=== PATIENT | female | born 2005 | race Caucasian/White ===

== ENCOUNTER 2025-01-07 12:33 | Outpatient (CLI) | payer OTHER, SELFPAY ==
--- OUTSIDE RECORDS SUMMARY | 2025-01-07 12:39 | XMS_ITS | Clinical Summary ---
Author Organization [facility] Address [address] [place] [address] Care Team Providers Care Vocational Rehabilitation Teacher Name Role Phone Meghan Way MD Primary Care Provider Allergies Active Allergy Reactions Criticality Noted Date Comments Red Dye Stomach upset Low Medications Xulane 150-35 mcg/24 hrIndications:Enco unter for surveillance of transdermal patch hormonal contraceptive device APPLY 1 PATCH TOPICALLY ONCE A WEEK FOR 12 WEEKS, THEN REMOVE FOR 1 WEEK. 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 She has terrific alignment with her contact lenses in place. I am removing the bifocals and hope she remains asymptomatic. 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 07/10/2010 Encounters Date Type Department Care Team Description 01/05/2025 4:00 PM CDT Office Visit [facility] Pediatric Gastroenterology [address] [facility] [address] [facility] [address] Yajaira Peng MD Abdominal pain, generalized (Primary Dx); Constipation, unspecified constipation type; Nausea 12/25/2024 10:00 AM CDT Therapy [facility] Occupational Therapy [address] [facility] [address] [facility] [address] [facility] [place] [address] Nelly Mccord OT Periventricular leukomalacia (HCC) (Primary Dx); Spastic diplegia (HCC); Generalized anxiety disorder; Agenesis of corpus callosum (HCC) 12/25/2024 9:00 AM CDT Therapy [facility] Physical Therapy [id number] [place] [address] Therapy [address] [place] [address] Kendy Quesada, DPT Spastic diplegia (HCC) (Primary Dx) 12/03/2024 11:00 AM CDT Therapy [facility] Physical Therapy [address] [place] [address] Therapy [address] [facility] [place] [address] Kendy Quesada, DPT Spastic diplegia (HCC) (Primary Dx); Agenesis of corpus callosum (HCC) 11/19/2024 3:00 PM CDT Therapy [facility] Physical Therapy [address] [place] [address] Therapy Services [address] [facility] [place] [address] Kendy Quesada, DPT Spastic diplegia (HCC) (Primary Dx) 11/05/2024 9:00 AM CDT Therapy [facility] Physical Therapy [address] [facility] [address] Therapy [address] [place] [phone] Kendy Quesada DPT Spastic diplegia (HCC) (Primary Dx); Agenesis of corpus callosum (HCC) 11/05/2024 Plan of Care Documentation [facility] Physical Therapy [address] [facility] [address] [facility] [address] [place] [address] 10/09/2024 Telephone [facility] Pediatric Neurology [facility] [address] [place] [phone] Michaelle Angeles NP 10/08/2024 Telephone [facility] Pediatric Neurology [facility] [address] [place] [phone] Malina Bennett MD PhD from Last 3 Months Medical History Medical History Date Comments Intermittent alternating esotropia Esotropia, intermittent, alternating - (Added by TW Conv) Personal history of other di seases of urinary system History of pyelonephritis - (Added by TW Conv) Personal history of urinary infection History of urinary tract infection - (Added by TW Conv) Personal history of other di seases of the nervous system and sense organs History of hydroce phalus - (Added by TW Conv) Dysgenesis of corpus callosum (HCC) Per Mom Spastic diplegia (HCC) Per Mom Polymorphic light eruption Family History Medical History Relation Name Comments No Known Psychiatric History Brother No Known Psychiatric History Father Depression Maternal Grandmother Monserrat Arizmendi Diabetes Maternal Grandmother Monserrat Arizmendi Hypertension Maternal Grandmother Monserrat Arizmendi Diabetes Mother Shelby Sanchez Hypertension Mother Shelby Sanchez No Known Psychiatric History Mother Shelby Sanchez Diabetes Mother's Brother Jose Armando Arizmendi Hypertension Mother's Brother Jose Armando Arizmendi Depression Other Heart disease Paternal Grandfather Thom Sanchez Relation Name Status Comments Brother Father Alive Maternal Grandmother Monserrat Arizmendi Mother Shelby Sanchez Alive Mother's Brother Jose Armando Ugo Mother's Sister Other Paternal Grandfather Thom Sanchez Social History Tobacco Use Types Packs/Day Years Used Date Smoking Tobacco: Never Smokeless Tobacco: Never Tobacco Cessation:Counseling Given: Not Answered Alcohol Use Standard Drinks/Week Comments Defer 0 (1 standard drink = 0.6 oz pur e alcohol) [facility] Utilities Answer Date Recorded In the past 12 months has th e electric, gas, oil, or water company threatened to shut off services in your home? No 10/07/2024 Overall Financial Resource Strain (CARDIA) Answe r Date Recorded How hard is it for you to pa y for the very basics like food, housing, medical care, and heating? Not hard at all 10/07/2024 Hunger Vital Sign Answer Date Recorded Within the past 12 months, y ou worried that your food would run out before you got the money to buy more. Never true 10/08/19 25 Within the past 12 months, t he food you bought just didn't last and you didn't have money to get more. Never true 10/07/2024 PRAPARE - Transportation Answer Date Re corded In the past 12 months, has l ack of transportation kept you from medical appointments or from getting medications? No 09/16 In the past 12 months, has l ack of transportation kept you from meetings, work, or from getting things needed for daily living? No 10/07/2024 Housing Stability Vital Sign Answer Ender e Recorded In the last 12 months, was t here a time when you were not able to pay the mortgage or rent on time? No 10/07/2024 In the past 12 months, how m any times have you moved where you were living? 0 10/07/2024 At any time in the past 12 m [facility], were you homeless or living in a [facility] (including now)? No 10/07/2024 Comments No Sex and Gender Information Value Date Recorded Sex Assigned at Not on file Legal Sex Female 3:48 AM LICENSING SERVICES CLERK Gender Identity Female 10/17/2022 7:52 PM CDT Sexual Orientation Straight 10/17/2022 7: 52 PM CDT Obstetrics History Para Term AB IAB SAB Ectopic Multiple Livin g Live Births 0 0 0 0 0 0 0 0 0 0 0 Growth Chart Information Age Height Weight Aotlpj-ahh-yhvg th Percentile BMI Percentile Head Circum Head Circum Percentile Date 19 years 164.7 cm (5' 4.84) 62.3 kg (137 lb 5.6 oz) 65.41%* 2024 18 years 165.1 cm (5' 5) 65.9 kg (145 lb 3.2 oz) 75.46%* 2024 18 years 166 cm (5' 5.35) 66.1 kg (145 lb 12.8 oz) 74.38%* 2024 17 years 164 cm (5' 4.57) 63.1 kg (139 lb 3.2 oz) 73.22%* 2023 17 years 164 cm (5' 4.57) 63.1 kg (139 lb 3.2 oz) 74.27%* 2022 16 years 164 cm (5' 4.57) 62.8 kg (138 lb 6.4 oz) 74.75%* 2022 16 years 164 cm (5' 4.57) 63.4 kg (139 lb 12.8 oz) 76.81%* 2022 16 years 164 cm (5' 4.57) 62.1 kg (136 lb 14.5 oz) 73.34%* 2022 16 years 163.6 cm (5' 4.41) 60.4 kg (133 lb 3.2 oz) 69.99%* 2022 16 years 163.8 cm (5' 4.49) 63.2 kg (139 lb 4 oz) 78.20%* 2021 16 years 164.4 cm (5' 4.72) 65 kg (143 lb 4.8 oz) 82.18%* 2021 15 years 167.7 cm (5' 6.02) 65.1 kg (143 lb 9.6 oz) 77.44%* 2021 15 years 165.1 cm (5' 5) 63.5 kg (140 lb) 79.15%* 2021 15 years 163 cm (5' 4.17) 64.9 kg (143 lb) 85.09%* 2021 15 years 163.3 cm (5' 4.3) 64.9 kg (143 lb) 84.76%* 2021 15 years 163.2 cm (5' 4.25) 64.6 kg (142 lb 6.4 oz) 85.78%* 2020 14 years 163.4 cm (5' 4.33) 62.6 kg (138 lb) 83.31%* 2020 14 years 166.4 cm (5' 5.51) 60.7 kg (133 lb 12.8 oz) 76.44%* 2019 13 years 161.5 cm (5' 3.58) 53.3 kg (117 lb 8 oz) 66.82%* 2019 11 years 151.8 cm (4' 11.75) 44.6 kg (98 lb 4.1 oz) 67.83%* 2017 9 years 135 cm (4' 5.15) 35.1 kg (77 lb 6.1 oz) 81.24%* 2015 9 years 138.4 cm (4' 6.5) 35.4 kg (78 lb) 74.78%* 2015 8 years 129.5 cm (4' 3) 27.7 kg (61 lb) 54.11%* 2014 8 years 129.5 cm (4' 2.98) 27.9 kg (61 lb 8.1 oz) 56.91%* 2014 8 years 131 cm (4' 3.58) 27.8 kg (61 lb 4.6 oz) 49.54%* 2014 8 years 129.5 cm (4' 3) 27.2 kg (60 lb 0.2 oz) 50.96%* 2014 7 years 123.1 cm (4' 0.46) 25.6 kg (56 lb 8.1 oz) 72.24%* 2013 5 years 108 cm (3' 6.5) 20.4 kg (44 lb 15.9 oz) 88.61%* 90.52%* 2010 5 years 109 cm (3' 6.91) 20.2 kg (44 lb 8.5 oz) 83.57%* 86.56%* 2010 5 years 19 kg (42 lb) 2010 4 years 103.6 cm (3' 4.79) 17.9 kg (39 lb 7.4 oz) 80.23%* 83.95%* 2010 4 years 103.1 cm (3' 4.59) 18.2 kg (40 lb 2 oz) 85.96%* 88.83%* 52.5 cm 2010 4 years 104 cm (3' 4.95) 17.5 kg (38 lb 9.3 oz) 71.52%* 75.86%* 2010 4 years 101.5 cm (3' 3.96) 17.6 kg (38 lb 12.8 oz) 85.55%* 88.51%* 2009 4 years 103 cm (3' 4.55) 17.2 kg (37 lb 14.7 oz) 71.97%* 75.36%* 52.4 cm 2009 * [facility] (Girls, 2-20 Years) Last Filed Vital Signs Vital Sign Reading Time Taken Comments Blood Pressure 118/79 01/05/2025 4:11 PM CDT Pulse 108 01/05/2025 4:11 PM CDT Temperature 36.7 C (98.1 F) 01/05/2025 4:11 PM CDT Respiratory Rate 20 01/05/2025 4:11 PM CDT Oxygen Saturation 97% 01/05/2025 4:11 PM CDT Inhaled Oxygen Concentration - - Weight 62.3 kg (137 lb 5.6 oz) 01/05/2025 4:11 P M CDT Height 164.7 cm (5' 4.84) 01/05/2025 4:11 PM CD T Head Circumference 52.5 cm 08/03/2010 2:19 PM LICENSING SERVICES CLERK Body Mass Index 22.97 01/05/2025 4:11 PM CDT Plan of Treatment Health Maintenance Due Date Last Done Comments Depression Screening 2005 Hepatitis C Screening 2005 DTaP/Tdap/Td Vaccine (1 - Tdap) 2016 Varicella Vaccines (1 of 2 - 13+ 2-dose series) 2018 Meningococcal B Vaccine (1 o f 2 - Standard) 2021 HPV Vaccines (2 - 3-dose series) 09/18/2023 08/21/19 Hepatitis B Screening 12/13/2023 Influenza Vaccine (#1) 2025 Regular Well Visit/Exam 18-64 10/06/2025 10/06/2024 Meningococcal Vaccine Aged Out No galdino rosa m eligible based on patient's age to complete this topic Pneumococcal vaccine <65 Aged Out No longer eligible based on patient's age to complete this topic Goals Goal Patient Goal Type Associated Problems Recent Progress Patient-Stated? Author BH-Anxiety Behavioral Health Worsening( 9:36 AM CDT) No Ephraim Goode, PhD Note: Decrease anxious rumination BH-Anxiety Behavioral Health Worsening( 9:36 AM CDT) No Ephraim Goode, PhD Note: Decrease avoidant behaviors BH-Adjustment and Coping Behavioral Health Improving( 9:56 AM CDT) No Ephraim Goode, PhD Note: Increase adaptive coping skills -Mood Behavioral Health No change(10/04 9:36 AM CDT) No Ephraim Goode, PhD Note: Increase engagement in pleasant activities BH-Social Functioning Behavioral Health On track(2022 9:13 AM LICENSING SERVICES CLERK) No Ephraim Goode, PhD Note: Increase frequency of positive social interactions with peers BH-Behavior Behavioral Health No change(10/04 9:36 AM CDT) No Ephraim Goode, PhD Note: Decrease frequency of tics -Anxiety Behavioral Health Worsening( 9:36 AM CDT) No Ephraim Goode, PhD Note: Improve tolerance of uncomfortable noises (e.g., oral noises) -Pain Behavioral Health On track(2022 9:13 AM LICENSING SERVICES CLERK) No Ephraim Goode, PhD Note: Increase non-pharmacological strategies for coping with pain -Pain Behavioral Health No change(10/04 9:35 AM CDT) Ephraim Damico, PhD Note: Improve mindfulness skills Insurance [facility] CHOICE PLUS [facility] CHOICE PLUS [facility] CHOICE PLUS [facility] CHOICE PLUS [facility] Address: [address] [place] [address] [facility] CHOICE PLUS [facility] Care Teams Vocational Rehabilitation Teacher Relationship Specialty Start Date End Date Meghan Way MD [address] [place] [phone] PCP - General Pediatrics 06/19/18
--- OUTSIDE RECORDS SUMMARY | 2025-01-07 12:39 | XMS_ITS | Clinical Summary ---
Author Organization [facility] Address [address] [place] [address] Care Team Providers Care Asbestos Shingle Inspector Name Role Phone Meghan Way MD Primary Care Provider [phone] Allergies Active Allergy Reactions Criticality Noted Date Comments Red Dye #40 (Allura Red) Vomiting 12/05/2021 Medications No known medications Encounters Date Type Department Care Team Description 01/05/2025 12:42 PM CDT - 01/05/2025 11:59 PM CDT Hospital Encounter [facility] [address] [facility] [place] [address] Lenora Moreno, [facility]- Arrived Discharge Disposition: Home or Self Care (Routine Discharge) 01/05/2025 Travel from Last 3 Months Family History Medical History Relation Comments No Known Problems Brother No Known Problems Father Hypertension Mother Relation Status Comments Brother Alive Father Alive Mother Alive Social History Tobacco Use Types Packs/Day Years Used Date Smoking Tobacco: Never Smokeless Tobacco: Never Alcohol Use Standard Drinks/Week Comments Never 0 (1 standard drink = 0.6 oz pur e alcohol) Comments No Sex and Gender Information Value Date Recorded Sex Assigned at Female 01/05/2025 12:32 PM CDT Legal Sex Female 10:22 PM FROZEN PIE MAKER Gender Identity Not on file Sexual Orientation Not on file Last Filed Vital Signs Vital Sign Reading Time Taken Comments Blood Pressure 121/73 12/05/2021 7:57 PM CDT Pulse 120 12/05/2021 7:57 PM CDT Temperature 36.8 C (98.3 F) 12/05/2021 7:57 PM CDT Respiratory Rate 18 12/05/2021 7:57 PM CDT Oxygen Saturation 100% 12/05/2021 7:57 PM CDT Inhaled Oxygen Concentration - - Weight 65 kg (143 lb 3.2 oz) 12/05/2021 7:57 PM CDT Height 165.1 cm (5' 5) 12/05/2021 7:57 PM CDT Body Mass Index 23.83 12/05/2021 7:57 PM CDT Body Mass Index Percentile 81.12% 12/05/2021 7:5 7 PM CDT Growth Chart: [facility] (Girls, 2- 20 Years) Plan of Treatment Health Maintenance Due Date Last Done Comments Annual Physical 2008 Meningococcal B Vaccine (1 o f 2 - Standard) 2021 HPV Vaccines (2 - 3-dose series) 09/18/2023 08/21/19 Hepatitis C 12/13/2023 COVID-19 Vaccine (1 - 2023-2 5 season) 2024 DTaP, Tdap and Td Vaccines ( 1 - Tdap) 2024 Hepatitis B Vaccines (1 of 3 - 19+ 3-dose series) 2024 Meningococcal Vaccine Aged Out No galdino rosa m eligible based on patient's age to complete this topic Pneumococcal Vaccine: Pediat rics (0 to 5 Years) and At-Risk Patients (6 to 49 Years) Aged Out No longer eligi ble based on patient's age to complete this topic RSV Immunizations Under 20 Months Aged Out No longer eligible based on patient's age to complete this topic Procedures Procedure Name Priority Date/Time Associated Diagnosis Comments ECG 12-LEAD Routine 01/05/2025 1:04 PM CDT Tachycardia from Last 3 Months Results * ECG 12 lead (01/05/2025 1:04 PM CDT) 01/05/2025 1:04 PM CDT Narrative [facility] - 01/06/2025 1:03 PM CDT [address] [place] [address] Test Date: 2025-01-05 Pat Name: INES JAMES Department: 3 Room: Gender: Female Campus Manager: : 2005 Requested By: LENORA MORENO Order Number: [id number] Reading MD: Carissa Infante Measurements Intervals [place] Rate: 83 P: 63 ND: 136 QRS: 88 QRSD: 105 T: 82 QT: 373 QTc: 441 Interpretive Statements SINUS RHYTHM Procedure Note Carissa Infante MD - 01/06/[address] [place] [address] Test Date: 2025-01-05 Pat Name: INES JAMES Department: 3 Room: Gender: Female Campus Manager: : 2005 Requested By: LENORA MORENO Order Number: [id number] Reading MD: Carissa Infante Measurements Intervals [place] Rate: 83 P: 63 ND: 136 QRS: 88 QRSD: 105 T: 82 QT: 373 QTc: 441 Interpretive Statements SINUS RHYTHM Lenora Moreno [facility]- ECG ORDERABLES Final Resu lt Performing Organization Address City/State/[facility] Co de Phone Number [facility] from Last 3 Months Insurance Care Teams Asbestos Shingle Inspector Relationship Specialty Start Date End Date Meghan Way MD [address] [place] [phone] PCP - General PEDIATRICS 07/07/20
--- OUTSIDE RECORDS SUMMARY | 2025-01-07 12:39 | XMS_ITS | Referral Summary ---
Author Organization [facility] Address [address] [place] [address] Care Team Providers Care Cut Off Saw Set Up Operator Name Role Phone Meghan Way MD Primary Care Provider Encounters Date Type Department Care Team Description 01/05/2025 4:00 PM CDT Office Visit [facility] Pediatric Gastroenterology [address] [facility] [address] [place] [phone] Yajaira Peng MD Abdominal pain, generalized (Primary Dx); Constipation, unspecified constipation type; Nausea 12/25/2024 9:00 AM CDT Therapy [facility] Physical Therapy [address] [place] [address] Therapy [address] [place] [phone] Kendy Quesada DPT Spastic diplegia (HCC) (Primary Dx) 12/25/2024 10:00 AM CDT Therapy [facility] Occupational Therapy [address] [place] [address] Therapy [address] [place] [phone] Nelly Mccord OT Periventricular leukomalacia (HCC) (Primary Dx); Spastic diplegia (HCC); Generalized anxiety disorder; Agenesis of corpus callosum (HCC) 12/03/2024 11:00 AM CDT Therapy [facility] Physical Therapy [address] [facility] [address] [facility] [place] [address] Kendy Quesada, DPT Spastic diplegia (HCC) (Primary Dx); Agenesis of corpus callosum (HCC) 11/19/2024 3:00 PM CDT Therapy [facility] Physical Therapy [id number] [place] [address] [address] [facility] [place] [address] Kendy Quesada, DPT Spastic diplegia (HCC) (Primary Dx) 11/05/2024 Plan of Care Documentation [facility] Physical Therapy [address] [place] [address] Therapy [address] [facility] [place] [address] 11/05/2024 9:00 AM CDT Therapy [facility] Physical Therapy [address] [place] [address] [address] [facility] [place] [address] Kendy Quesada, DPT Spastic diplegia (HCC) (Primary Dx); Agenesis of corpus callosum (HCC) 10/09/2024 Telephone [facility] Pediatric Neurology [facility] [address] [place] [phone] Michaelle Angeles NP 10/08/2024 Telephone [facility] Pediatric Neurology [facility] [address] [place] [phone] Malina Bennett MD PhD from Last 3 Months Allergies Active Allergy Reactions Criticality Noted Date Comments Red Dye Stomach upset Low Medications Xulane 150-35 mcg/24 hrIndications:Enco unter for surveillance of transdermal patch hormonal contraceptive device APPLY 1 PATCH TOPICALLY ONCE A WEEK FOR 12 WEEKS, THEN REMOVE FOR 1 WEEK. 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 Intermittent esotropia of both eyes 07/31/2018 Assessment & Plan (07/31/2018 4:54 PM HAY FARMER): The child has very good alignment with [...] of corpus callosum 07/10/2010 Hypotonic disorder 07/10/2010 Social History Tobacco Use Types Packs/Day Years Used Date Smoking Tobacco: Never Smokeless Tobacco: Never Tobacco Cessation:Counseling Given: Not Answered Alcohol Use Standard Drinks/Week Comments Defer 0 (1 standard drink = 0.6 oz pur e alcohol) [facility] Utilities Answer Date Recorded In the past 12 months has e electric, gas, oil, or water company [...] any time in the past 12 m [facility], were you homeless or living in a long-term (including now)? No 10/07/2024 Comments No Sex and Gender Information Value Date Recorded Sex Assigned at Not on file Legal Sex Female 3:48 AM HAY FARMER Gender Identity Female 10/17/2022 7:52 PM CDT Sexual Orientation Straight 10/17/2022 7: 52 PM CDT Last Filed Vital Signs Vital Sign Reading [...] Head Circumference 52.5 cm 08/03/2010 2:19 PM HAY FARMER Body Mass Index 22.97 01/05/2025 4:11 PM CDT Plan of Treatment Not on file Goals Goal Patient Goal Type Associated Problems [...] PhD Note: Increase engagement in pleasant activities -Social Functioning Behavioral Health On track(2022 9:13 AM HAY FARMER) No Ephraim Goode, PhD Note: Increase frequency of positive social interactions with peers -Behavior Behavioral Health No change(10/04 9:36 AM CDT) No Ephraim Goode, PhD Note: Decrease frequency of tics -Anxiety Behavioral Health Worsening( 9:36 AM CDT) No Ephraim Goode, PhD Note: Improve tolerance of uncomfortable noises (e.g., oral noises) -Pain Behavioral Health On track(2022 9:13 AM HAY FARMER) No Ephraim Goode, PhD Note: Increase non-pharmacological strategies for coping with pain -Pain Behavioral Health No change(10/04 9:35 AM CDT) No Ephraim Goode, PhD Note: Improve mindfulness skills Insurance [facility] CHOICE PLUS [facility] CHO[facility] PLUS [facility] CHO[facility] PLUS [facility] CHO[facility] PLUS [facility] CHOICE PLUS [facility] Care Teams Cut Off Saw Set Up Operator Relationship Specialty Start Date End Date Meghan Way MD [address] [place] [id number] PCP - General Pediatrics 06/19/18
--- OUTSIDE RECORDS SUMMARY | 2025-01-07 12:39 | XMS_ITS | Encounter Summary ---
Author Organization [facility] Address [address] [place] [address] Care Team Providers Care Sampler Radioactive Waste Name Role Phone Meghan Way MD Primary Care Provider Encounter Details Date Type Department Care Team (Late st Contact Info) Description 01/29/2023 Telephone [facility] Occupational Therapy [address] [facility] [address] [place] [address] Nelly Mccord, JASEN Social History Tobacco Use Types Packs/Day Years Used Date Smoking Tobacco: Never Smokeless Tobacco: Never Alcohol Use Standard Drinks/Week Comments Defer 0 (1 standard drink = 0.6 oz pur e alcohol) Comments No Sex and Gender Information Value Date Recorded Sex Assigned at Not on file Legal Sex Female 3:48 AM SCCM ADMINISTRATOR Gender Identity Female 10/17/2022 7:52 PM CDT Sexual Orientation Straight 10/17/2022 7: 52 PM CDT documented as of this encounter Plan of Treatment Not on file documented as of this encounter Goals Goal Patient Goal Type Associated Problems Recent Progress Patient-Stated? Author BH-Anxiety Behavioral Health Worsening( 9:36 AM CDT) No Ephraim Goode, PhD Note: Decrease anxious rumination BH-Anxiety Behavioral Health Worsening( 9:36 AM CDT) No Ephraim Goode, PhD Note: Decrease avoidant behaviors -Adjustment and Coping Behavioral Health Improving( 9:56 AM CDT) No Ephraim Goode, Note: Increase adaptive coping skills BH-Mood Behavioral Health No change(10/04 9:36 AM CDT) No Ephraim Goode, PhD Note: Increase engagement in pleasant activities BH-Social Functioning Behavioral Health On track(2022 9:13 AM SCCM ADMINISTRATOR) No Ephraim Goode, Note: Increase frequency of positive social interactions with peers BH-Behavior Behavioral Health No change(10/04 9:36 AM CDT) No Ephraim Goode, PhD Note: Decrease frequency of tics -Anxiety Behavioral Health Worsening( 9:36 AM CDT) No Ephraim Goode, PhD Note: Improve tolerance of uncomfortable noises (e.g., oral noises) -Pain Behavioral Health On track(2022 9:13 AM SCCM ADMINISTRATOR) No Ephraim Goode, PhD Note: Increase non-pharmacological strategies for coping with pain -Pain Behavioral Health No change(10/04 9:35 AM CDT) No Ephraim Goode, PhD Note: Improve mindfulness skills documented as of this encounter Visit Diagnoses Not on filedocumented in this encounter Care Teams Sampler Radioactive Waste Relationship Specialty Start Date End Date Meghan Way MD [address] [place] [id number] PCP - General Pediatrics 06/19/18 documented as of this encounter
--- OUTSIDE RECORDS SUMMARY | 2025-01-07 12:39 | XMS_ITS | Encounter Summary ---
Author Organization [facility] Address [address] [place] [address] Phone Care Team Providers Care Discharge Door Operator Name Role Phone Meghan Way MD Primary Care Provider Encounter Details Date Type Department Care Team (Late st Contact Info) Description 07/27/2021 Documentation [facility] Pediatric Neurology [address] [place] [address] Malina Bennett MD PhD [phone] [place] [address] Social History Tobacco Use Types Packs/Day Years Used Date Smoking Tobacco: Never Smokeless Tobacco: Never Alcohol Use Standard Drinks/Week Comments Defer 0 (1 standard drink = 0.6 oz pur e alcohol) Comments Unknown Sex and Gender Information Value Date Recorded Sex Assigned at Not on file 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 Author BH-Anxiety Behavioral Health Worsening( 9:36 AM CDT) No Ephraim Goode, PhD Note: Decrease anxious rumination -Anxiety Behavioral Health Worsening( 9:36 AM CDT) No Ephraim Goode PhD Note: Decrease avoidant behaviors -Adjustment and Coping Behavioral Health Improving( 9:56 AM CDT) No Ephraim Goode, Note: Increase adaptive coping skills -Mood Behavioral Health No change(10/04 9:36 AM CDT) No Ephraim Goode, Note: Increase engagement in pleasant activities -Social Functioning Behavioral Health On track(2022 9:13 AM SECURITY PATROL OFFICER) No Ephraim Goode, Note: Increase frequency of positive social interactions with peers -Behavior Behavioral Health No change(10/04 9:36 AM CDT) No Ephraim Goode, Note: Decrease frequency of tics -Anxiety Behavioral Health Worsening( 9:36 AM CDT) No Ephraim Goode, Note: Improve tolerance of uncomfortable noises (e.g., oral noises) documented as of this encounter Visit Diagnoses Not on filedocumented in this encounter Care Teams Discharge Door Operator Relationship Specialty Start Date End Date Meghan Way MD [address] [place], [place] [id number] PCP - General Pediatrics 06/19/18 documented as of this encounter
--- OUTSIDE RECORDS SUMMARY | 2025-01-07 12:39 | XMS_ITS | Encounter Summary ---
Author Organization [facility] Address [address] [place] [address] Care Team Providers Care Engagement Liaison Name Role Phone Meghan Way MD Primary Care Provider [phone] Encounter Details Date Type Department Care Team (Latest Contact Info) Description 01/05/2025 12:42 PM CDT - 01/05/2025 11:59 PM CDT Hospital Encounter [facility] [address] [place] [address] Lenora Moreno, [address] [address] Arrived Discharge Disposition: Home or Self Care (Routine Discharge) Social History Tobacco Use Types Packs/Day Years Used Date Smoking Tobacco: Never Smokeless Tobacco: Never Alcohol Use Standard Drinks/Week Comments Never 0 (1 standard drink = 0.6 oz pur e alcohol) Comments No Sex and Gender Information Value Date Recorded Sex Assigned at Female 01/05/2025 12:32 PM CDT 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 [address] Test Date: 2025-01-05 Pat Name: INES JAMES Department: 3 Room: Gender: Female Medical Driver: : 2005 Requested By: LENORA MORENO Order Number: [id number] Reading MD: Carissa Infante Measurements Intervals [place] Rate: 83 P: 63 [place]: 136 QRS: 88 QRSD: 105 T: 82 QT: 373 QTc: 441 Interpretive Statements SINUS RHYTHM Procedure Note Carisas Infante MD - 01/06/[address] [place] [address] Test Date: 2025-01-05 Pat Name: INES JACOB Department: 3 Room: Gender: Female Medical Driver: : 2005 Requested By: LENORA MORENO Order Number: [id number] Reading MD: Carissa Infante Measurements Intervals [place] Rate: 83 P: 63 [place]: 136 QRS: 88 QRSD: 105 T: 82 QT: 373 QTc: 441 Interpretive Statements SINUS RHYTHM Lenora Moreno REPLENISHMENT ASSOCIATE- ECG ORDERABLES Final Resu lt [facility] documented in this encounter Visit Diagnoses Diagnosis Tachycardia- Primary Tachycardia, unspecified documented in this encounter Care Teams Engagement Liaison Relationship Specialty Start Date End Date Meghan Way MD [address] [place] [phone] PCP - General PEDIATRICS 07/07/20 documented as of this encounter
--- OUTSIDE RECORDS SUMMARY | 2025-01-07 12:39 | XMS_ITS | Patient Health Record ---
Author Organization [facility] Address [address] [place] [address] Care Team Providers Care Certified Neurodiagnostic Technologist Name Role Phone SHAKEEL JOHNSON Unavailable [phone] Allergies No Known Allergies Reason For Referral No Information Medications Medication SIG (Take, Route, Fr equency, Duration) Notes Start Date End Date Status Xulane 150-35 MCG/24HR Transdermal for 28 Days Active Social History Tobacco Use: Social History Observation Description Date Details (start date - stop date) Never Smoker NA - NA Tobacco Use/Smoking Question Answer Notes Tobacco use: nonsmoker Problems Problem Type SNOMED Code ICD Code Onset Dates Problem Status W/U Status Risk Notes Problem Cellulitis of right toe (6872428760) Cellulitis of right toe (L03.031) Active confirmed Problem 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
--- OUTSIDE RECORDS SUMMARY | 2025-01-07 12:39 | XMS_ITS | Continuity of Care Document ---
Author Name [facility] Organization [facility] Care Team Providers Care Production Hand Name Role Phone [facility] Unavailable Unavailable Social History Combined list of available smoking, tobacco, and other social history from Department of Defense and Veterans Affairs facilities. Social History Type Response Date Comment Sourc e This section is an empty social history section. [facility]
--- NOTE | 2025-01-18 16:33 | WPDHOLTEREM ---
Holter/Event Monitor Holter/Event Monitor Date of procedure: 01/07/25 Holter/Event Procedure: 3-7 Day Holter Monitor Indications: Tachycardia Conclusion: 1. 5 days holter monitor on 01/07/25. 2. Underlying rhythm is sinus rhythm. HR range 48-178 bpm; average HR 108 bpm. HR at 48 bpm waws on 01/11/25 at 5:31 am. HR at 178 bpm was on 01/07/25 at 5:33 pm. 3. There are rare premature supraventricular complexes. No supraventricular tachycardia. 4. There are rare premature ventricular complexes. No ventricular tachycardia. 5. No significant pauses greater than 3 seconds. 6. Patient reports 17 episodes of symptoms of headache, chest pain, nausea which demonstrate sinus tachycardia, HR range 105-139 bpm.
== END 2025-01-07 12:34 | disposition home or self-care (01) ==
PROVIDERS: PCP Pediatrics; Visit Provider Nurse Practitioner
DX: R00.0 Tachycardia, unspecified (principal)
CPT/HCPCS: 93242